=== PATIENT | female | born 1975 | race Caucasian/White ===

== ENCOUNTER 2017-03-08 17:15 | Emergency (ER) | payer BC | END 2017-03-08 22:32 | disposition home or self-care (01) | LOC: ER 17:15 | DX: T63.091A Toxic effect of venom of other snake, accidental (unintentional), initial encounter (principal); M79.89 Other specified soft tissue disorders; Z79.899 Other long term (current) drug therapy; Z23 Encounter for immunization | CPT/HCPCS: 36415; 90471; 96365; 96366; 96367; J0295 ==